=== PATIENT | male | born 1945 | race Caucasian/White ===

== ENCOUNTER → 2017-10-10 | Outpatient (CLI) | payer OTHER, MEDICARE ==
--- NOTE | ~2017-10-10 | CNG ---
[facility] [place] [address] CYTO-NONGYN REPORT PROCEDURE Name: DANIEL GREWAL Room #: REG CL M.Solomon.#: [id number] Admission: 10/10/17 Date of : 47 Discharge: Report #: [id number] Path Case #: [id number] CYTOPATHOLOGY REPORT COLLECTION DATE: 10/10/2017 RECEIVED DATE: 10/10/2017 SUBMITTING PHYS: Dr. Ko Gee OTHER PHYS: Dr. Daniel Hernandez CLINICAL HISTORY: Lateral decubitus, pneumonia, SOB SPECIMEN(S) RECEIVED: A.Pleural fluid * * * * * * * * * * * * FINAL DIAGNOSIS: A. Pleural fluid: - No malignant cells identified. Mesothelial cells are present. - Acute and chronic inflammatory cells present. PATHOLOGIST: Dorian Maldonado M.D. REPORT ELECTRONICALLY SIGNED BY: Dorian Maldonado M.D. DATE/TIME: 10/11/2017 11:12 * * * * * * * * * * * * GROSS PATHOLOGY: A. Pleural fluid: The specimen is submitted unfixed, labeled "Daniel Grewal". Received by the Cytology Department is 15 mL of clear yellow fluid. One ThinPrep slide and a formalin fixed cell block were prepared. (mm 10.10.2017) NEUROPSYCHOLOGY SERVICE DIRECTOR(S): ELKIN Bowden([facility]) INITIAL CPT CODE(S): A; 73374, 86821 Professional services performed by [facility] at [place] [address] , [place] [address] Technical services performed by [facility] at [address] [place] [address]., [address], [place] [address]. [facility] [address] [place] [address], [address] [place] [address] PHONE: [phone] [facility] [address] [place] [address] CYTO-NONGYN REPORT PROCEDURE Name: DANIEL GREWAL Room #: REG CLI Jude.#: [id number] Admission: 10/10/17 Date of : 47 Discharge: Report #: [id number] Path Case #: [id number] DIRECTOR: Jorge A Dubois M.D. * * * END OF REPORT * * *
[2017-10-10 13:06] LABS: HEMATOCRIT 38.8 % (42.0-52.0); HEMOGLOBIN 13.3 gm/dL (14.0-18.0); MCH 30.5 pg (26.0-34.0); MCHC 34.4 g/dL (28.0-37.0); MCV 88.8 fL (80.0-100.0); RBC 4.37 mil/uL (4.50-6.00); WBC 7.6 thou/uL (4.0-11.0)
[2017-10-10 13:17] LABS: INR 1.2; PROTIME 12.1 Seconds (9.3-11.4)
[2017-10-10 15:22] LABS: SOURCE CHEST; TOTAL VOLUME 65 mL
[2017-10-10 15:23] LABS: CLARITY HAZY; COLOR YELLOW
[2017-10-10 15:45] LABS: BF NUCLEATED CELLS 401; BF RBC 1016
[2017-10-10 17:12] LABS: BF MACROPHAGE 22; BF NEUTROPHILS 16
[2017-10-11 11:11] LABS: BODY FLUID ALBUMIN 2.1 g/dL (()); BODY FLUID AMYLASE 11 U/L (()); BODY FLUID GLUCOSE 135 mg/dL (()); BODY FLUID LDH 117 IU/L (()); BODY FLUID PROTEIN 3.6 g/dL (())
[2017-10-13 11:11] LABS: SOURCE CHEST
== END ==
LOC: RAD 11:35
PROVIDERS: Internal Medicine Pulmonary Disease
DX: J90 Pleural effusion, not elsewhere classified (principal)

== ENCOUNTER → 2017-10-12 | Outpatient (CLI) | payer OTHER, MEDICARE ==
--- NOTE | ~2017-10-12 | CNG ---
[facility] [address] CYTO-NONGYN REPORT PROCEDURE Name: DANIEL MAGAÑA Room #: REG CL M.Solomon.#: [id number] Admission: 10/12/17 Date of : 47 Discharge: Report #: [id number] Path Case #: [id number] CYTOPATHOLOGY REPORT COLLECTION DATE: 10/12/2017 RECEIVED DATE: 10/12/2017 SUBMITTING PHYS: Dr. Ko Gee OTHER PHYS: Dr. Daniel Hernandez CLINICAL HISTORY: CXR, Pneumonia, Pleural Effusion SPECIMEN(S) RECEIVED: A.Pleural fluid * * * * * * * * * * * * FINAL DIAGNOSIS: A. Pleural fluid: - No malignant cells identified. Few mesothelial cells partially obscured by acute and chronic inflammatory cells. PATHOLOGIST: Dorian Maldonado M.D. REPORT ELECTRONICALLY SIGNED BY: Dorian Maldonado M.D. DATE/TIME: 10/15/2017 08:53 * * * * * * * * * * * * GROSS PATHOLOGY: A. Pleural fluid: The specimen is submitted unfixed, labeled "Uri Daniel Mccartney". Received by the Cytology Department is 15 mL of cloudy yellow fluid. One ThinPrep slide and a formalin fixed cell block were prepared. (mm 10.12.2017) RELIEF DRILLER(S): ELKIN Zhou(ASCP) INITIAL CPT CODE(S): A; 82934, 44851 Professional services performed by [facility] at [facility] , [place] [address] Technical services performed by [facility] at [address] [place] [address]., [address], [place] [address]. [facility] [address] [place] [address], [address] [place] [address] PHONE: [phone] [facility] [address] [place] [place] [address] CYTO-NONGYN REPORT PROCEDURE Name: DANIEL MAGAÑA Room #: REG CLI Jude.#: [id number] Admission: 10/12/17 Date of : 47 Discharge: Report #: [id number] Path Case #: [id number] DIRECTOR: Jorge A Dubois M.D. * * * END OF REPORT * * *
[2017-10-12 12:26] LABS: COLOR YELLOW; SOURCE CHEST FLUID; TOTAL VOLUME 60 mL
[2017-10-12 12:27] LABS: CLARITY HAZY
[2017-10-12 12:28] LABS: BF NUCLEATED CELLS 744; BF RBC 1768
[2017-10-12 15:21] LABS: BF NEUTROPHILS 11
[2017-10-12 15:22] LABS: BF MACROPHAGE 22
[2017-10-13 11:12] LABS: SOURCE CHEST
[2017-10-14 06:11] LABS: BODY FLUID ALBUMIN 1.9 g/dL (()); BODY FLUID AMYLASE 11 U/L (()); BODY FLUID GLUCOSE 118 mg/dL (()); BODY FLUID LDH 162 IU/L (()); BODY FLUID PROTEIN 3.1 g/dL (())
== END | disposition home or self-care (01) ==
LOC: ULTRA 09:57
PROVIDERS: Internal Medicine Pulmonary Disease
DX: J90 Pleural effusion, not elsewhere classified (principal)

== ENCOUNTER → 2021-05-09 | Outpatient (CLI) | payer OTHER, MEDICARE ==
[~2021-05-09] MED LIST: ZPAK PO
== END ==
LOC: SJCVCIMAG 13:24
PROVIDERS: ATTEND Internal Medicine Cardiovascular Disease
DX: R94.31 Abnormal electrocardiogram [ECG] [EKG] (principal); I49.3 Ventricular premature depolarization; I11.9 Hypertensive heart disease without heart failure; I25.10 Atherosclerotic heart disease of native coronary artery without angina pectoris; R53.83 Other fatigue; R06.02 Shortness of breath; E11.9 Type 2 diabetes mellitus without complications; Z88.8 Allergy status to other drugs, medicaments and biological substances; Z79.82 Long term (current) use of aspirin; Z79.84 Long term (current) use of oral hypoglycemic drugs; Z79.899 Other long term (current) drug therapy; Z87.891 Personal history of nicotine dependence; Z82.49 Family history of ischemic heart disease and other diseases of the circulatory system

== ENCOUNTER 2021-05-16 14:35 | Emergency (ER) | payer OTHER, MEDICARE ==
[~2021-05-16] VITALS: Ht 185.4 cm; Wt 102.1 kg
[2021-05-16 14:37] VITALS: BP 131/64
[2021-05-16 15:55] LABS: URINE BLOOD NEGATIVE (Negative); URINE CLARITY CLEAR; URINE COLOR YELLOW; URINE GLUCOSE-RANDOM* NEGATIVE (Negative); URINE KETONES 1+ (Negative); URINE LEUKOCYTES-REFLEX NEGATIVE (Negative); URINE NITRITE-REFLEX NEGATIVE (Negative); URINE PROTEIN (DIPSTICK) NEGATIVE (Negative); URINE SPECIFIC GRAVITY 1.025 (1.005-1.035)
[2021-05-16 15:57] LABS: ICTOTEST (BILI CONFIRMATORY) Negative (Negative); URINE BILIRUBIN NEGATIVE (Negative)
[2021-05-16 16:18] LABS: ABSOLUTE NEUTROPHILS 8.1 thou/uL (1.4-8.2); BASOPHILS 0.4 % (0.0-2.0); EOSINOPHILS 4.2 % (0.0-3.0); HEMATOCRIT 43.7 % (42.0-52.0); HEMOGLOBIN 14.4 gm/dL (14.0-18.0); LYMPHOCYTES 21.7 % (24.0-44.0); MCH 30.6 pg (26.0-34.0); MCV 92.9 fL (80.0-100.0); MONOCYTES 8.6 % (1.0-8.0); PLATELET COUNT 306 thou/uL (150-400); POLYS 65.1 % (36.0-66.0); RDW 14.7 % (10.5-14.5); WBC 12.4 thou/uL (4.0-11.0)
[2021-05-16 16:22] LABS: CALCIUM 8.3 mg/dL (8.5-10.1); CREATININE 1.6 mg/dL (0.7-1.3)
[2021-05-16] MEDS ORDERED: ZPAK PO (17:38)
== END 2021-05-16 17:38 | disposition home or self-care (01) ==
LOC: ER 14:35
PROVIDERS: Nurse Practitioner
DX: J18.9 Pneumonia, unspecified organism (principal); Z20.822 Contact with and (suspected) exposure to COVID-19; R53.1 Weakness

== ENCOUNTER → 2021-05-16 | Outpatient (CLI) | payer OTHER, MEDICARE | LOC: SJCVCIMAG 08:52 | PROVIDERS: ATTEND Internal Medicine Cardiovascular Disease | DX: I49.3 Ventricular premature depolarization (principal); R00.0 Tachycardia, unspecified; I25.10 Atherosclerotic heart disease of native coronary artery without angina pectoris; R06.00 Dyspnea, unspecified; E78.5 Hyperlipidemia, unspecified; E11.9 Type 2 diabetes mellitus without complications; Z87.891 Personal history of nicotine dependence; I25.2 Old myocardial infarction; I10 Essential (primary) hypertension; Z79.82 Long term (current) use of aspirin; Z79.899 Other long term (current) drug therapy; Z98.61 Coronary angioplasty status ==